=== PATIENT | male | born 1965 | race American Indian/Alaskan Native ===

== ENCOUNTER 2017-08-29 14:47 | Outpatient (CLI) | payer OTHER ==
--- NOTE | 2017-08-29 17:50 | Ultrasound Report ---
FINAL REPORT PROCEDURE: US TESTICULAR DOPPLER COMP TECHNIQUE: Real-time samaniego-scale and color flow Doppler sonography in multiple planes of the scrotum, testicles, and epididymes was performed. Velocity spectral waveform analysis Doppler imaging of the arterial inflow and venous outflow of the testicles was performed with image documentation. CPT 65219 and 60928 HISTORY: R TESTICULAR PAIN/MASS COMPARISON: No prior studies are available for comparison. FINDINGS: RIGHT TESTICLE: Size: 4.1 x 2.3 x 3.1 cm . Appearance: Diffusely coarse echotexture, with no focal mass identified. There is a 2 x 7 x 4 millimeter cyst present anteriorly, possibly extratesticular Arterial blood flow: Normal spectral waveforms, flow velocities and color flow images.. Right epididymis: 3 small cysts are seen in the epididymal head, measuring up to 5 millimeters. Hydrocele: Small. LEFT TESTICLE Size: 3.9 x 2.2 x 3.2 cm . Appearance: Diffusely coarse echotexture, with no focal mass identified. Arterial blood flow: Normal spectral waveforms, flow velocities and color flow images.. Left epididymis: 1 centimeter cyst is present in the epididymal head. Hydrocele: Small. IMPRESSION: Bilateral epididymal head cysts Bilateral small hydroceles There is a 7 millimeter cyst present at the anterior border of the right testis, which may be extratesticular.
== END 2017-08-29 14:48 | disposition home or self-care (01) ==
LOC: US 14:47
PROVIDERS: ATTEND Family Medicine Adult Medicine
DX: N44.2 Benign cyst of testis (principal); N50.3 Cyst of epididymis; N43.3 Hydrocele, unspecified
CPT/HCPCS: 93975

== ENCOUNTER 2018-02-27 07:30 | Outpatient (CLI) | payer OTHER ==
--- NOTE | 2018-02-27 09:47 | Ultrasound Report ---
Testicular ultrasound: Followup epididymal cysts. The right testicle measures 21 x 32 x 41 mm. It is echogenically course. No focal finding. Normal flow pattern. The epididymis measures 15 mm in size. There are 2 cysts each measuring approximately 5 mm. There is a small right hydrocele. The left testicle measures 23 x 26 x 37 mm. It is also echogenically course with normal blood flow. The epididymis measures 1.2 cm in size containing a 7 mm cyst mm. There is a is a small hydrocele. Compared to the prior exam on August 29, 2017 the right epididymis contains one cyst. The left epididymis is essentially the same. Impression: Bilateral epididymal cysts as described above. Persistent small bilateral hydroceles.
== END 2018-02-27 07:31 | disposition home or self-care (01) ==
LOC: US 07:30
PROVIDERS: ATTEND Urology
DX: N50.3 Cyst of epididymis (principal); N43.2 Other hydrocele
CPT/HCPCS: 93975

== ENCOUNTER 2018-06-09 07:37 | Outpatient (CLI) | payer OTHER ==
--- NOTE | 2018-06-09 09:27 | Ultrasound Report ---
ULTRASOUND TESTICULAR DOPPLER COMPLETE History: Scrotal mass. Technique: Trans-scrotal ultrasound with spectral doppler interrogation. Comparison: 02/27/18. Findings: Both testes remain normal size and contour. Both testes have a slightly coarse echotexture but no evidence for cyst, mass or calcifications. 2 right epididymal head cysts are stable measuring 5 mm each. A solitary left epididymal cyst is stable measuring 7 mm. Small bilateral hydroceles are noted. Spectral Doppler waveforms demonstrate symmetric arterial flow to both testes. IMPRESSION: No change in the bilateral epididymal head cysts since 02/27/18.
== END 2018-06-09 07:38 | disposition home or self-care (01) ==
LOC: US 07:37
PROVIDERS: ATTEND Urology
DX: N50.3 Cyst of epididymis (principal); N43.3 Hydrocele, unspecified
CPT/HCPCS: 93975

== ENCOUNTER 2019-04-09 07:20 | Outpatient (CLI) | payer BC ==
--- NOTE | 2019-04-09 08:31 | Ultrasound Report ---
ULTRASOUND TESTICULAR DOPPLER COMPLETE HISTORY: Scrotal nodule TECHNIQUE: Transscrotal ultrasound with color and spectral Doppler imaging. COMPARISON: Scrotal ultrasound report dated 11/24/2018 FINDINGS: The right testicle measures 4.4 x 2.3 x 3.0 cm. The right testicle is normal size, contour and echote xture. Normal color Doppler and spectral waveforms are demonstrated in the right testicle. There are 2 small cysts in the right epididymal head on today's examination measuring 6 mm and 4 mm. Small righ t hydrocele is noted. The left testicle measures 4.3 x 2.1 x 2.9 cm. The left testicle is normal size, contour and echotext ure. Normal color Doppler and spectral waveforms are demonstrated in the left testicle. Mildly lobula emmanuel cyst in the left epididymal head measures 9 mm in greatest diameter on today's exam. Small left h ydrocele is noted. No evidence for varicocele. IMPRESSION: Bilateral epididymal head cysts are identified as described above. There are 2 small cysts in the rig ht epididymal head. One of these appears to be new since the previous exam. A lobulated cyst in the l eft epididymal head has decreased in size and now measures 9 mm. Small bilateral hydroceles. No evidence for suspicious mass or epididymoorchitis. Signer Name: Abbe Stacy Jr, MD Signed: 04/09/2019 8:27 AM Workstation Name: [id number]
== END 2019-04-09 07:21 | disposition home or self-care (01) ==
LOC: US 07:20
PROVIDERS: ATTEND Urology
DX: N50.3 Cyst of epididymis (principal); N43.2 Other hydrocele
CPT/HCPCS: 93975

== ENCOUNTER 2019-08-18 07:10 | Outpatient (CLI) | payer BC ==
--- NOTE | 2019-08-18 08:57 | Ultrasound Report ---
ULTRASOUND SCROTUM INDICATION: N49.2 SCROTAL NODULE. COMPARISON Testicular ultrasound 04/09/2019 FINDINGS -- RIGHT TESTIS: Size: 4.4 x 2.3 x 3.0 cm. Echotexture: Normal. Color Doppler Flow: Normal. Lesions: None. EPIDIDYMIS: Size: Normal. Echotexture: Normal. Color Doppler Flow: Normal. Lesions: 2 right epidi dymal head cysts measuring 6 and 4 mm Hydrocele: Small Varicocele: None. Additional Findings: None. FINDINGS -- LEFT TESTIS: Size: 4.3 x 2.1 x 2.9 cm. Echotexture: Normal. Color Doppler Flow: Normal. Lesions: None. EPIDIDYMIS: Size: Normal. Echotexture: Normal. Color Doppler Flow: Normal. Lesions: 8 mm left epi didymal head cyst Hydrocele: Small Varicocele: None. Additional Findings: None. IMPRESSION: 1. Stable small bilateral epididymal head cysts. 2. Small bilateral hydroceles. 3. No intratesticular lesions Signer Name: Nikos Fair MD Signed: 08/18/2019 8:53 AM Workstation Name: [id number]
== END 2019-08-18 07:11 | disposition home or self-care (01) ==
LOC: US 07:10
PROVIDERS: ATTEND Urology
DX: N43.3 Hydrocele, unspecified (principal); N50.3 Cyst of epididymis
CPT/HCPCS: 93975